=== PATIENT | female | born 1995 | race Caucasian/White ===

== ENCOUNTER 2017-11-01 13:34 | Outpatient (CLI) | payer OTHER ==
[2017-11-01 14:12] LABS: ADD UMIC YES; UR ASCORBIC ACID 40 mg/dL (NEGATIVE); UR BACTERIA FEW /HPF (NONE SEEN); UR BILIRUBIN (Dip) NEGATIVE (NEGATIVE); UR BLOOD (Dip) NEGATIVE (NEGATIVE); UR CLARITY SLIGHTLY CLOUDY (CLEAR); UR COLOR YELLOW (YELLOW); UR GLUCOSE (Dip) NEGATIVE (NEGATIVE); UR KETONES (Dip) NEGATIVE (NEGATIVE); UR LEUKOCYTE ESTERASE (Dip) 3+ Leu/ul (NEGATIVE); UR MUCUS FEW /HPF (NONE SEEN); UR NITRITE (Dip) NEGATIVE (NEGATIVE); UR RBC 1 /HPF (0-5); UR SPECIFIC GRAVITY (Dip) 1.019 (1.003-1.030); UR SQUAMOUS EPITHELIAL CELL FEW /HPF (FEW); UR TOTAL PROTEIN (Dip) NEGATIVE (NEGATIVE); UR UROBILINOGEN (Dip) NEGATIVE (NEGATIVE); UR WBC 11 /HPF (0-5)
[2017-11-01 14:26] LABS: RUPTURE FETAL MEMBRANES NEGATIVE (NEGATIVE)
== END 2017-11-01 15:05 | disposition home or self-care (01) ==
LOC: OBT 13:34 → L-D 13:36 → OBT 15:05
DX: O42.913 Preterm premature rupture of membranes, unspecified as to length of time between rupture and onset of labor, third trimester (principal); Z3A.36 36 weeks gestation of pregnancy
CPT/HCPCS: 76818; 81001; 84112; 87086

== ENCOUNTER 2017-11-27 03:20 | Inpatient (IN) | payer OTHER, MEDICAID ==
[2017-11-27] MEDS ORDERED: IBUPROFEN 600 MG TAB PO (04:30)
[2017-11-27] MEDS ORDERED: MISOPROSTOL 200 MCG TAB PR (04:30)
[2017-11-27] MEDS ORDERED: BUTORPHANOL 2 MG INJ IV (04:30)
[2017-11-27] MEDS ORDERED: CARBOPROST 250 MCG INJ IM (04:30)
[2017-11-27] MEDS ORDERED: LIDOCAINE 1% (MPF) 30 ML INJ INJ (04:30)
[2017-11-27] MEDS ORDERED: OXYTOCIN 30 UNITS/LR 500 ML IV ×2 (04:30)
[2017-11-27] MEDS ORDERED: METHYLERGONOVINE 0.2 MG INJ IM (04:30)
[2017-11-27] MEDS: LACTATED RINGER'S 1,000 ML IV ×3 (04:57→22:34)
[2017-11-27 05:17] LABS: ADD MAN DIFF? NO
[2017-11-27] MEDS: AMPICILLIN 2 GM/NS (PMX) 100 ML IV (05:24)
[2017-11-27 05:41] LABS: BASOPHIL # 0.1 10^3/ul (0.0-0.1); BASOPHILS % 0.7 % (0.0-2.0); EOSINOPHILS # 0.1 10^3/ul (0.0-0.5); EOSINOPHILS % 0.9 % (0.0-7.0); HEMATOCRIT 37.3 % (37.0-47.0); HEMOGLOBIN 12.7 g/dl (12.0-16.0); LYMPHOCYTES # 2.4 10^3/ul (0.8-2.9); LYMPHOCYTES % 23.8 % (18.0-55.0); MEAN CORPUSCULAR HEMOGLOBIN 30.5 pg (29.0-33.0); MEAN CORPUSCULAR VOLUME 89.4 fl (72.0-104.0); MONOCYTE # 0.8 10^3/ul (0.3-0.9); MONOCYTES % 7.7 % (0.0-13.0); NEUTROPHIL # 6.6 10^3/ul (1.6-7.5); NEUTROPHILS % 64.6 % (30.0-74.0); PLATELET COUNT 294 10^3/UL (140-415); RED BLOOD COUNT 4.17 10^6/ul (4.20-5.40); RED CELL DISTRIBUTION WIDTH 12.8 % (11.5-14.5)
[2017-11-27 05:41] LABS: WHITE BLOOD COUNT 10.2 10^3/ul (4.8-10.8)
[2017-11-27 05:53] LABS: INR 0.87; PARTIAL THROMBOPLASTIN TIME 26.3 Sec (25.0-35.0); PROTIME 11.9 Sec (11.9-14.9); PT RATIO 0.9
[2017-11-27 06:25] LABS: HEPATITIS B SURFACE ANTIGEN NEGATIVE (NEGATIVE)
[2017-11-27 06:45] LABS: AMPHETAMINE/METHAMPHETAMINE Negative (NEGATIVE); BARBITURATES Negative (NEGATIVE); BENZODIAZEPINES Negative (NEGATIVE); CANNABINOIDS Negative (NEGATIVE); COCAINE Negative (NEGATIVE); OPIATES Negative (NEGATIVE)
[2017-11-27] MEDS: AMPICILLIN 1 GM/NS (PMX) 50 ML IV ×4 (10:09→22:34)
[2017-11-27] MEDS: BUTORPHANOL 2 MG INJ IV (10:50)
[2017-11-27] MEDS: OXYTOCIN 30 UNITS/LR 500 ML IV (15:55)
[2017-11-27] MEDS ORDERED: MINERAL OIL LIGHT 10 ML VIAL TOP (19:30)
[2017-11-27 21:28] LABS: RAPID PLASMA REAGIN NONREACTIVE (NR)
[2017-11-27] MEDS ORDERED: FENTAnyl 2MCG/ML-ROPIV 0.2% 100 ML (22:13)
[2017-11-27] MEDS ORDERED: ONDANSETRON 4 MG INJ IV (23:00)
[2017-11-27] MEDS ORDERED: DIPHENHYDRAMINE 50 MG INJ IV (23:00)
[2017-11-27] MEDS ORDERED: NALOXONE (0.4 MG/ML) INJ IV (23:00)
[2017-11-28] MEDS: LACTATED RINGER'S 1,000 ML IV ×3 (01:05→18:59)
[2017-11-28] MEDS: AMPICILLIN 1 GM/NS (PMX) 50 ML IV ×2 (01:32→07:11)
[2017-11-28] MEDS: FENTAnyl 2MCG/ML-ROPIV 0.2% 100 ML BAG EPI (01:54)
[2017-11-28] MEDS ORDERED: TERBUTALINE 1 ML (02:18)
[2017-11-28] MEDS: TERBUTALINE 1 MG/ML INJ SC (02:24)
[2017-11-28] MEDS ORDERED: PHENYLephrine (100 MCG/ML) 5ML SYG (04:23)
[2017-11-28] MEDS ORDERED: morphine SULFATE/PF (10 MG/10 ML) INJ (04:23)
[2017-11-28] MEDS ORDERED: OXYTOCIN 10 UNIT INJ (04:23)
[2017-11-28] MEDS ORDERED: morphine 2 MG INJ IV (06:30)
[2017-11-28] MEDS ORDERED: ONDANSETRON 4 MG INJ IV ×2 (06:30→09:00)
[2017-11-28] MEDS ORDERED: NALOXONE (0.4 MG/ML) INJ IV (06:30)
[2017-11-28] MEDS ORDERED: DIPHENHYDRAMINE 50 MG INJ IV ×2 (06:30→09:00)
[2017-11-28] MEDS ORDERED: OXYTOCIN 30 UNITS/LR 500 ML BAG IV (07:00)
[2017-11-28] MEDS: KETOROLAC 30 MG INJ IV ×2 (07:01→17:24)
[2017-11-28] MEDS: OXYTOCIN 30 UNITS/LR 500 ML IV (07:02)
[2017-11-28] MEDS ORDERED: CARBOPROST 250 MCG INJ IM (09:00)
[2017-11-28] MEDS ORDERED: OXYCODONE/ACETAMINOPHEN (5/325) TAB PO (09:00)
[2017-11-28] MEDS ORDERED: METHYLERGONOVINE 0.2 MG INJ IM (09:00)
[2017-11-28] MEDS ORDERED: OXYTOCIN 30 UNITS/LR 500 ML IV (09:00)
[2017-11-28] MEDS ORDERED: MISOPROSTOL 200 MCG TAB PR (09:00)
[2017-11-28] MEDS ORDERED: ZOLPIDEM 5 MG TAB PO (09:00)
[2017-11-28] MEDS: SENNA/DOCUSATE NA (8.6MG/50MG) TAB PO ×2 (11:17→21:00)
[2017-11-28] MEDS: LANOLIN 7 GM TUBE TOP (11:17)
[2017-11-29] MEDS: LACTATED RINGER'S 1,000 ML IV (00:52)
[2017-11-29] MEDS: KETOROLAC 30 MG INJ IV (01:47)
[2017-11-29] MEDS: IBUPROFEN 600 MG TAB PO ×4 (05:36→23:43)
[2017-11-29] MEDS: SENNA/DOCUSATE NA (8.6MG/50MG) TAB PO ×2 (08:35→21:15)
[2017-11-29 08:56] LABS: ADD MAN DIFF? NO
[2017-11-29 08:58] LABS: WHITE BLOOD COUNT 10.9 10^3/ul (4.8-10.8)
[2017-11-29 08:58] LABS: BASOPHILS % 0.3 % (0.0-2.0); EOSINOPHILS # 0.1 10^3/ul (0.0-0.5); EOSINOPHILS % 0.6 % (0.0-7.0); HEMATOCRIT 31.3 % (37.0-47.0); HEMOGLOBIN 10.6 g/dl (12.0-16.0); LYMPHOCYTES # 1.4 10^3/ul (0.8-2.9); LYMPHOCYTES % 12.8 % (18.0-55.0); MEAN CORPUSCULAR HEMOGLOBIN 30.7 pg (29.0-33.0); MEAN CORPUSCULAR HGB CONC 33.9 g/dl (32.0-37.0); MEAN CORPUSCULAR VOLUME 90.7 fl (72.0-104.0); MEAN PLATELET VOLUME 9.4 fl (7.4-10.4); MONOCYTE # 0.8 10^3/ul (0.3-0.9); MONOCYTES % 6.9 % (0.0-13.0); NEUTROPHIL # 8.6 10^3/ul (1.6-7.5); NEUTROPHILS % 78.7 % (30.0-74.0); PLATELET COUNT 226 10^3/UL (140-415); RED BLOOD COUNT 3.45 10^6/ul (4.20-5.40); RED CELL DISTRIBUTION WIDTH 12.8 % (11.5-14.5)
[2017-11-29] MEDS: OXYCODONE/ACETAMINOPHEN (5/325) TAB PO (21:15)
[2017-11-30] MEDS: OXYCODONE/ACETAMINOPHEN (5/325) TAB PO ×2 (05:40→16:11)
[2017-11-30] MEDS: IBUPROFEN 600 MG TAB PO ×3 (05:40→18:02)
[2017-11-30] MEDS: SENNA/DOCUSATE NA (8.6MG/50MG) TAB PO ×2 (08:54→21:16)
[2017-12-01] MEDS: IBUPROFEN 600 MG TAB PO ×3 (00:10→11:46)
[2017-12-01] MEDS: LANOLIN 7 GM TUBE TOP (00:23)
[2017-12-01] MEDS: OXYCODONE/ACETAMINOPHEN (5/325) TAB PO (00:24)
[2017-12-01] MEDS: DIPHTH/TET/ACEL PERTUSS (ADULT) 0.5 ML VIAL IM* (09:00)
[2017-12-01] MEDS: SENNA/DOCUSATE NA (8.6MG/50MG) TAB PO (10:18)
== END 2017-12-01 15:40 | disposition home or self-care (01) | DRG 766 ==
LOC: OBT 03:20 → L-D 11-28 04:06 → OBT 04:15 → PP1 11-28 08:44 → L-D 04:15
PROVIDERS: Obstetrics & Gynecology
PROC: 10D00Z1 Extraction of Products of Conception, Low, Open Approach (ICD-10-PCS; principal; 2017-11-28)
PROC: 3E033VJ Introduction of Other Hormone into Peripheral Vein, Percutaneous Approach (ICD-10-PCS; 2017-11-28)
DX: O69.89X0 Labor and delivery complicated by other cord complications, not applicable or unspecified (principal); O76 Abnormality in fetal heart rate and rhythm complicating labor and delivery; Z3A.39 39 weeks gestation of pregnancy; Z37.0 Single live birth
CPT/HCPCS: 62319; 80307; 85025; 85610; 85730; 86592; 86850; 86900; 86901; 87340; 99464

== ENCOUNTER 2018-12-02 08:58 | Emergency (ER) | payer OTHER ==
[2018-12-02] MEDS: ACETAMINOPHEN 325 MG TAB PO (09:41)
[2018-12-02 10:15] LABS: ADD MAN DIFF? NO
[2018-12-02 10:19] LABS: WHITE BLOOD COUNT 5.8 10^3/ul (4.8-10.8)
[2018-12-02 10:19] LABS: BASOPHILS % 0.7 % (0.0-2.0); EOSINOPHILS # 0.1 10^3/ul (0.0-0.5); EOSINOPHILS % 1.7 % (0.0-7.0); HEMATOCRIT 39.4 % (37.0-47.0); HEMOGLOBIN 13.1 g/dl (12.0-16.0); LYMPHOCYTES % 34.7 % (15.0-51.0); MEAN CORPUSCULAR HEMOGLOBIN 29.3 pg (29.0-33.0); MEAN CORPUSCULAR HGB CONC 33.2 g/dl (32.0-37.0); MEAN CORPUSCULAR VOLUME 88.1 fl (82.0-101.0); MONOCYTE # 0.4 10^3/ul (0.3-0.9); MONOCYTES % 7.1 % (0.0-11.0); NEUTROPHIL # 3.2 10^3/ul (1.6-7.5); NEUTROPHILS % 55.6 % (39.0-77.0); PLATELET COUNT 344 10^3/UL (140-415); RED BLOOD COUNT 4.47 10^6/ul (4.20-5.40); RED CELL DISTRIBUTION WIDTH 12.3 % (11.5-14.5)
[2018-12-02 10:22] LABS: ADD UMIC YES; UR ASCORBIC ACID NEGATIVE (NEGATIVE); UR BILIRUBIN (Dip) NEGATIVE (NEGATIVE); UR BLOOD (Dip) NEGATIVE (NEGATIVE); UR CLARITY SLIGHTLY CLOUDY (CLEAR); UR COLOR YELLOW (YELLOW); UR GLUCOSE (Dip) NEGATIVE (NEGATIVE); UR KETONES (Dip) NEGATIVE (NEGATIVE); UR LEUKOCYTE ESTERASE (Dip) TRACE Leu/ul (NEGATIVE); UR MUCUS MODERATE /HPF (NONE SEEN); UR NITRITE (Dip) NEGATIVE (NEGATIVE); UR RBC 4 /HPF (0-5); UR SPECIFIC GRAVITY (Dip) 1.024 (1.003-1.030); UR SQUAMOUS EPITHELIAL CELL FEW /HPF (FEW); UR TOTAL PROTEIN (Dip) NEGATIVE (NEGATIVE); UR UROBILINOGEN (Dip) NEGATIVE (NEGATIVE); UR WBC 12 /HPF (0-5)
[2018-12-02 10:45] LABS: ALANINE AMINOTRANSFERASE 20 IU/L (13-69); ALBUMIN 4.7 g/dl (3.3-4.9); ALBUMIN/GLOBULIN RATIO 1.42; ALKALINE PHOSPHATASE 72 IU/L (42-121); ANION GAP 10 (5-13); ASPARTATE AMINO TRANSFERASE 29 IU/L (15-46); BILIRUBIN,INDIRECT 0.2 mg/dl (0-1.1); BILIRUBIN,TOTAL 0.2 mg/dl (0.2-1.3); BLOOD UREA NITROGEN 16 mg/dl (7-20); CALCIUM 10.1 mg/dl (8.4-10.2); CARBON DIOXIDE 29 mmol/L (21-31); CHLORIDE 104 mmol/L (97-110); CREATININE 0.64 mg/dl (0.44-1.00); Estimated GFR > 60 mL/min (>60); GLUCOSE 96 mg/dl (70-220); POTASSIUM 5.4 mmol/L (3.5-5.1); SODIUM 143 mmol/L (135-144)
[2018-12-02] MEDS: CEPHALEXIN 500 MG CAP PO (10:59)
== END 2018-12-02 11:27 | disposition home or self-care (01) ==
LOC: FTE 08:58
DX: N30.00 Acute cystitis without hematuria (principal)
CPT/HCPCS: 36415; 71045; 80053; 81001; 81003; 81025; 85025; 93005; 99284-25